=== PATIENT | female | born 1995 | race Two or more races ===

== ENCOUNTER 2019-06-27 08:29 | Inpatient (IN) | payer OTHER ==
[~2019-06-27] VITALS: Ht 167.6 cm; Wt 86.2 kg
== END 2019-06-29 18:00 | disposition home or self-care (01) | DRG 833 ==
LOC: OB/GYN 08:29
PROVIDERS: ADMIT Obstetrics & Gynecology
PROC: BY4FZZZ Ultrasonography of Third Trimester, Single Fetus (ICD-10-PCS; principal; 2019-06-27)
PROC: 4A1HXCZ Monitoring of Products of Conception, Cardiac Rate, External Approach (ICD-10-PCS; 2019-06-27)
DX: O24.414 Gestational diabetes mellitus in pregnancy, insulin controlled (principal); O36.63X1 Maternal care for excessive fetal growth, third trimester, fetus 1; Z34.83 Encounter for supervision of other normal pregnancy, third trimester
CPT/HCPCS: 240

== ENCOUNTER 2019-07-30 10:46 | Inpatient (IN) | payer OTHER ==
[~2019-07-30] VITALS: Ht 167.6 cm; Wt 87.5 kg
[2019-08-01] MEDS ORDERED: PRENATAL + DHA1 EAC1 PO (08:18)
[2019-08-01] MEDS ORDERED: INSULIN (08:19)
== END 2019-08-01 11:36 | disposition home or self-care (01) | DRG 807 ==
LOC: LDR 10:46 → OB/GYN 10:46
PROVIDERS: ADMIT Obstetrics & Gynecology
PROC: 10E0XZZ Delivery of Products of Conception, External Approach (ICD-10-PCS; principal; 2019-07-30)
PROC: 0KQM0ZZ Repair Perineum Muscle, Open Approach (ICD-10-PCS; 2019-07-30)
PROC: 3E033VJ Introduction of Other Hormone into Peripheral Vein, Percutaneous Approach (ICD-10-PCS; 2019-07-30)
PROC: 4A1HXCZ Monitoring of Products of Conception, Cardiac Rate, External Approach (ICD-10-PCS; 2019-07-30)
DX: O70.1 Second degree perineal laceration during delivery (principal); Z37.0 Single live birth; O24.420 Gestational diabetes mellitus in childbirth, diet controlled; Z3A.39 39 weeks gestation of pregnancy